=== PATIENT | female | born 1970 | race Caucasian/White ===

== ENCOUNTER 2023-08-27 15:34 | Emergency (ER) | payer BC, SELFPAY ==
[2023-08-27 15:38] VITALS: BP 136/80
[2023-08-27 15:50] VITALS: BMI 25.7
[2023-08-27 15:52] VITALS: BP 138/83
[2023-08-27 16:00] VITALS: BP 133/67
--- NOTE | 2023-08-27 16:08 | ED.GENMED ---
History of Present Illness
<Galdino Nance DO - Last Filed: 08/27/23 16:43>
General
Chief Complaint: Throat Problem
Time Seen by Provider: 08/27/23 15:58
<Lorri Mccarthy PA-C - Last Filed: 08/27/23 20:55>
General
Source: patient and records
Exam Limitations: none
Nursing documentation reviewed up to this point in time: agreed with
Travel History
Have you had any contact with someone who has COVID-19?: No
Do you have any symptoms of coronavirus? Fever > 100 degrees, chills, cough, shortness of breath, sore throat, loss of taste or smell, muscle aches, or headache?: No
History of Present Illness
History of Present Illness:
53-year-old female with a past medical history of traumatic aortic dissection presenting to the emergency department today with sore throat, left-sided throat pain, and dysphagia for the past 3 days. Patient states that she is also felt some chills
but denies any fevers at home. Patient denies any abdominal pain, nausea, vomiting. Patient denies any trouble breathing, lip swelling, tongue swelling. Patient is up-to-date on her vaccinations. Patient is never had anything like this before.
Patient went to urgent care today for further evaluation where they examined her and noted a peritonsillar abscess. Patient was sent to the emergency department. Patient has no allergies to any medications.
Review of Systems
<Lorri Mccarthy PA-C - Last Filed: 08/27/23 20:55>
Review of Systems
All Other Systems: ROS reviewed and negative except as documented in HPI and ROS
Phy Exam
<Lorri Mccarthy PA-C - Last Filed: 08/27/23 20:55>
Physical Exam
Physical Exam:
General: Patient is well appearing and in no acute distress; non-toxic
Skin: Warm and dry, no rashes or lesions
Head: Normocephalic, atraumatic
Eyes: Sclera non-icteric. EOMs intact.
Mouth: Area of fluctuance noted in the left posterior pharynx with uvula deviation to the right.
Neck: No cervical lymphadenopathy.
Cardiac: Regular rate and rhythm, no murmurs.
Peripheral Vascular: No lower extremity edema.
Pulm: Normal respiratory effort, no wheezes, rales, rhonchi.
Abdomen: No abdominal tenderness to palpation. No palpable masses.
Neuro: CN II-XII intact, no focal neurologic deficits.
Psychiatric: Appropriate mood and affect.
Course
<Galdino Nance, DO - Last Filed: 08/27/23 16:43>
Orders/Labs/Results
Orders:
Orders
08/27/23 16:12
Complete Blood Count/With Diff Urgent
Comprehensive Metabolic Panel Urgent
08/27/23 16:18
Ketorolac [Toradol] 15 mg IV NOW STA
08/27/23 16:33
Dexamethasone Sod Phosphate [Decadron] 10 mg IV NOW STA
08/27/23 16:38
Ampicillin/Sulbactam 3 G [Unasyn] 3 gm 0.9% Sodium Chloride 100 ml [Nss] 100 ml IV NOW
08/27/23 17:52
0.9% Sodium Chloride 1000 ml [Nss] 1,000 ml IV BOLUS
Abnormal Lab Results
08/27/23
16:12
MCH 31.1 H pg
(27.0-31.0)
MPV 10.7 H fL
(7.4-10.4)
Absolute Neuts (auto) 8.2 H 10^3/uL
(1.4-6.5)
Neutrophils % 80.2 H %
(42.2-75.2)
Lymphocytes % 12.0 L %
(20.5-51.1)
Glucose 105 H mg/dl
(70-99)
08/27/23 16:12
08/27/23 16:12
Vital Signs
Initial and Last Documented VS:
Initial Vital Signs
Temp Pulse Resp BP Pulse Ox
99.5 F 84 16 136/80 99
08/27/23 15:38 08/27/23 15:38 08/27/23 15:38 08/27/23 15:38 08/27/23 15:38
Last Documented Vital Signs
Temp Pulse Resp BP Pulse Ox
99.5 F 84 16 106/62 97
08/27/23 15:38 08/27/23 18:45 08/27/23 18:45 08/27/23 18:00 08/27/23 18:45
<Lorri Mccarthy PA-C - Last Filed: 08/27/23 20:55>
Orders/Labs/Results
Orders:
Orders
08/27/23 16:12
Complete Blood Count/With Diff Urgent
Comprehensive Metabolic Panel Urgent
08/27/23 16:18
Ketorolac [Toradol] 15 mg IV NOW STA
08/27/23 16:33
Dexamethasone Sod Phosphate [Decadron] 10 mg IV NOW STA
08/27/23 16:38
Ampicillin/Sulbactam 3 G [Unasyn] 3 gm 0.9% Sodium Chloride 100 ml [Nss] 100 ml IV NOW
08/27/23 17:52
0.9% Sodium Chloride 1000 ml [Nss] 1,000 ml IV BOLUS
Abnormal Lab Results
08/27/23
16:12
MCH 31.1 H pg
(27.0-31.0)
MPV 10.7 H fL
(7.4-10.4)
Absolute Neuts (auto) 8.2 H 10^3/uL
(1.4-6.5)
Neutrophils % 80.2 H %
(42.2-75.2)
Lymphocytes % 12.0 L %
(20.5-51.1)
Glucose 105 H mg/dl
(70-99)
08/27/23 16:12
08/27/23 16:12
Vital Signs
Initial and Last Documented VS:
Initial Vital Signs
Temp Pulse Resp BP Pulse Ox
99.5 F 84 16 136/80 99
08/27/23 15:38 08/27/23 15:38 08/27/23 15:38 08/27/23 15:38 08/27/23 15:38
Last Documented Vital Signs
Temp Pulse Resp BP Pulse Ox
99.5 F 84 16 106/62 97
08/27/23 15:38 08/27/23 18:45 08/27/23 18:45 08/27/23 18:00 08/27/23 18:45
Procedures
<Lorri Mccarthy PA-C - Last Filed: 08/27/23 20:55>
Incision/Drainage/Joint Aspiration
Left peritonsillar abscess:
Anethesia: 1% Lidocaine with Epi and other (HurriCaine spray)
Type of procedure: aspiration
Nature of site: abscess
Description of abscess: less than 3cm
Loculations broken up: No
How much fluid was obtained?: scant amount
Fluid description: purulent
Treatment: left open for drainage
<Lorri Mccarthy PA-C - Last Filed: 08/27/23 20:55>
MDM/Problems Addressed
Differential Diagnosis Includes:
Differentials include strep pharyngitis, peritonsillar abscess, epiglottitis, esophagitis, esophageal web/stricture,
MDM/Problems Addressed:
throat pain
dysphagia
Chronic conditions affecting care:
traumatic aortic dissection
<Lorri Mccarthy PA-C - Last Filed: 08/27/23 20:55>
*Pulse Oximetry
Patient hypoxic: no
*Critical Care Note
Total Time (30-74mins, 75-104mins- exclusive of procedures): Not Applicable
Data Reviewed
Review of Other/Old Records Reveals: Records (No previous ER visits to review) and Discharge Summary (Previous discharge summaries to review)
Source: patient and records
<Lorri Mccarthy PA-C - Last Filed: 08/27/23 20:55>
Patient Management
Escalation/DeEscalation of care consider admission/obs:
53-year-old female with a past medical history of traumatic aortic dissection presenting to the emergency department today with sore throat, left-sided throat pain, and dysphagia for the past 3 days. History and physical exam consistent with
peritonsillar abscess. No indication for CT scan at this time. Patient was treated symptomatically with Toradol and Decadron, she is also given IV fluids. This did make patient more comfortable, we did attempt to needle aspirate the peritonsillar
abscess, we did get some drainage of purulent fluid but a minimal amount. Will start patient on course of Augmentin and have her follow-up with ENT, I did reach out to physician on-call who agreed to see patient in office later this week. Patient
in agreement with plan. All questions were answered.
ED Attending Note
<Galidno Nance DO - Last Filed: 08/27/23 16:43>
ED Attending Note
Patient seen and examined by attending physician: Yes
I performed the substantive portion of visit, reviewed & personally made and approve the management plan that is documented in note by myself or NEISHA.: Yes
ED Attending Note:
Seen with PA examined independently looks like a left peritonsillar abscess trismus tonsillar fullness with contralateral uvular deviation will proceed with aspiration
<Lorri Mccarthy PA-C - Last Filed: 08/27/23 20:55>
-
Portions of this chart may have been created with voice recognition software.� Occasional wrong word or��sound alike� substitutions may have occurred due to the inherent limitations of voice recognition software.
Discharge Plan
Departure
Patient Disposition: Home (Routine Discharge)
Date of Disposition: 08/27/23
Time of Disposition: 18:29
Patient with high blood pressure during this ER visit?: Yes
Condition: Good
Discharge Problem:
Peritonsillar abscess
Instructions: Sore Throat, Adult (DC), Peritonsillar Abscess, Adult (DC), BLOOD PRESSURE
Prescriptions:
New
amoxicillin-pot clavulanate 875-125 mg tablet
1 tab PO BID 14 Days Qty: 28 0RF
No Action
aspirin 81 mg Tablet,Delayed Release (Dr/Ec)
81 mg PO DAILY
progesterone micronized 200 mg Capsule
200 mg PO HS
ibuprofen 200 mg Tablet
200 mg PO Q8HPRN PRN (Reason: mild pain)
Referrals:
Joseph Davidson MD [Family Provider] -
Pk Bullard MD [Active] - Call in 1-3 days for appt
Activity Restrictions/Additional Instructions:
We have given your information to Dr. Bullard, ENT physician electronic video games servicer. He will see you in the office Friday. Please call the attached number for an appointment and tell them you were seen here.
We sent an antibiotic called Augmentin to your pharmacy. Please take one tablet twice daily for 14 days.
You can alternate Tylenol and Motrin for pain control.
Please return to the emergency department should you experience intractable vomiting, persistent of your symptoms/acute worsening of your symptoms, chest pain, shortness of breath, back pain, trouble breathing, persistent fevers.
Please follow up with your primary care provider.
Interventions
Interventions:
*Risk Screen - Suicide Last Done: 08/27/23 15:50
*General Assessment Last Done: 08/27/23 15:50
*Neglect/Abuse Screening Last Done: 08/27/23 15:50
ED- Fall Risk Assessment Last Done: 08/27/23 15:50
*ED COVID-19 Vaccine History Last Done: 08/27/23 15:38
*Nursing Disposition Last Done: 08/27/23 19:03
ED-EENT Assessment Last Done: 08/27/23 16:44
ED- Pulmonary Assessment Last Done: 08/27/23 15:50
Discharge Date and Time
Discharge Date/Time: 08/27/23 19:04
Print Language: [email or web address]
[2023-08-27 16:23] LABS: % Basophils 0.1 % (0-2); % Eosinophils 1.3 % (0-6); % Immature Granulocytes 0.3 % (0-0.5); % Monocytes 6.1 % (1.7-9.3); % Neutrophils 80.2 % (42.2-75.2); Absolute Eosinophils 0.1 10^3/uL (0-0.7); Absolute Lymphocytes 1.2 10^3/uL (1.2-3.4); Absolute Monocytes 0.6 10^3/uL (0.1-0.6); Absolute Neutrophils 8.2 10^3/uL (1.4-6.5); Hematocrit 38.8 % (37.0-47.0); Hemoglobin 13.1 g/dL (12.0-16.0); Mean Corp Hgb Conc. 33.8 g/dL (33.0-37.0); Mean Corpuscular Hgb 31.1 pg (27.0-31.0); Mean Corpuscular Volume 92.2 fL (81.0-99.0); Mean Platelet Volume 10.7 fL (7.4-10.4); Nucleated Red Blood Cells % 0 %; Platelet Count 212 10^3/uL (130-400); Red Blood Cell Count 4.21 10^6/uL (4.20-5.40); Red Cell Dist. Width 12.2 % (11.5-14.5); White Blood Cell Count 10.2 10^3/uL (4.8-10.8)
[2023-08-27] MEDS: TORADOL 15 MG IV (16:23)
[2023-08-27 16:34] LABS: ALT (SGPT) 13 U/L (0-35); AST (SGOT) 20 U/L (14-36); Albumin 4.1 g/dl (3.5-5.0); Alkaline Phosphatase 76 U/L (38-126); Blood Urea Nitrogen 12 mg/dl (7-17); Calcium 9.5 mg/dl (8.4-10.2); Carbon Dioxide 28 mmol/L (22-30); Chloride 106 mmol/L (98-107); Estimated Creatinine Clearance 78 ml/min; Glucose 105 mg/dl (70-99); Potassium 4.5 mmol/L (3.5-5.1); Sodium 137 mmol/L (135-145); Total Bilirubin 0.6 mg/dl (0.2-1.3); Total Protein 6.7 g/dl (6.3-8.2); eGFR > 60.00
[2023-08-27] MEDS: DECADRON 10 MG IV (16:40)
[2023-08-27 17:00] VITALS: BP 113/65
[2023-08-27] MEDS: UNASYN IV (17:35)
[2023-08-27] MEDS: NSS 1000 IV (17:56)
[2023-08-27 18:00] VITALS: BP 106/62
== END 2023-08-27 19:04 | disposition home or self-care (01) ==
LOC: EMR 15:34
PROVIDERS: EMERGENCY PHYSICIAN Emergency Medicine; FAMILY PHYSICIAN Internal Medicine
DX: J36 Peritonsillar abscess (principal)
CPT/HCPCS: 99284; 42700; 96365; 96375 ×2; 96361; 80053; 85025

== ENCOUNTER → 2023-08-29 17:19 | Outpatient (REF) | payer BC, SELFPAY | LOC: CLAB 17:19 | PROVIDERS: ATTENDING PHYSICIAN Otolaryngology | DX: J36 Peritonsillar abscess (principal) | CPT/HCPCS: 87070; 87205 ==